=== PATIENT | male | born 1980 | race African-American/Black ===

== ENCOUNTER 2024-02-08 17:51 | Emergency (ER) | payer OTHER ==
[~2024-02-08] VITALS: Ht 177.8 cm; Wt 75.0 kg
[2024-02-08 17:53] VITALS: TEMP 98.6; O2SAT 98
[2024-02-08 21:41] VITALS: BP 118/77; PULSE 50; RESP 10; O2SAT 100
== END 2024-02-08 21:48 | disposition home or self-care (01) ==
LOC: ER 17:51
DX: T50.7X1A Poisoning by analeptics and opioid receptor antagonists, accidental (unintentional), initial encounter (principal); Z98.890 Other specified postprocedural states; Y92.9 Unspecified place or not applicable
CPT/HCPCS: 99283; Z7610; 99284